=== PATIENT | male | born 1995 | race Two or more races ===

== ENCOUNTER 2020-11-15 22:26 | Emergency (ER) | payer SELFPAY ==
--- NOTE | ~2020-11-15 | XR_ITS ---
EXAMINATION: XR ANKLE, LEFT CLINICAL INFORMATION: Swelling. Injury. COMPARISON: None TECHNIQUE: AP, lateral, and mortise views of the left ankle. FINDINGS: No fracture or dislocation. The ankle mortise is congruent. No ankle joint effusion seen. Lateral soft tissue swelling. XR/XR ankle LT 2V IMPRESSION: Lateral soft tissue swelling. No acute osseous abnormality.
[2020-11-16 04:00] VITALS: BP 142/74; PULSE 77; RESP 16; TEMP 36.2; O2SAT 100; BMI 20.9
[2020-11-16 05:19] VITALS: BP 141/74; PULSE 93; TEMP 36; O2SAT 100
--- NOTE | 2020-11-16 05:59 | ED_ITS ---
HPI - Extremity Injury (Lower) General Chief Complaint: Extremity Injury, Lower Stated Complaint: ankle inj Time Seen by Provider: 11/16/20 05:58 Source: patient Mode of arrival: ambulatory History of Present Illness HPI Narrative: 25-year-old male without significant past medical history is playing basketball and twisted his left ankle now presents with swollen/painful ankle. Related Data Allergies Allergy/AdvReac Type Severity Reaction Status Date / Time No Known Allergies Allergy Verified 11/16/20 03:59 Review of Systems Review of Systems: Pertinent positives and negatives as stated in HPI 10 point review of systems otherwise negative. [facility] Social History Social History Advance Directives: No Advance Directives Information Provided: No Physical Exam Vital Signs: Vital Signs: Last Vital Signs Temp 96.8 F 11/16/20 05:19 Pulse 93 11/16/20 05:19 Resp 16 11/16/20 04:00 BP 141/74 H 11/16/20 05:19 Pulse Ox 100 11/16/20 05:19 Body Mass Index 20.9 VITAL SIGNS: Reviewed. GENERAL: Well developed, well nourished, in no acute distress. HEAD: Normocephalic/atraumatic EYES: PERRLA, EOMI LUNGS: Normal breath sounds. SpO2<100> CARDIOVASCULAR: Regular rate and rhythm without noted murmurs ABDOMEN: Soft, non-tender, non-distended with bowel sounds. LEFT ANKLE: Swelling noted primarily at the lateral malleolus with good palpable DP/PT, capillary refill less than 3 seconds and sensory is intact. No midfoot tenderness. SKIN: Inspection of the skin reveals no rashes NEUROLOGIC: Alert and oriented x 4. Course Course Course Narrative: 25-year-old male with history and clinical presentation consistent with sprain versus for fracture and doubt dislocation. After review of all investigations there is no imaging evidence of fracture or dislocation and patient received an Giuliano wrap as well as a work note. Discharge Plan Discharge Clinical Impression: Left ankle sprain Patient Disposition: Home, Self-Care Instructions: Ankle Sprain (ED), R.I.C.E. Treatment (ED) Additional Instructions: 1. Tylenol 1000 mg, orally, every 6 hours as needed for pain control. Do not exceed 4000 mg within 24 hours. 2. Ibuprofen 400 mg, orally with milk or food, every 6 hours as needed for pain control. 3. Recommend applying ice to unexposed skin for 10-15 minutes, 3 to 4 times a day. 4. Recommend establishing care with a primary care provider and being re- evaluated. 5. You may bear weight as tolerated on the left foot and this will gradually improve with time. Do not run, jump. Return to the ER for acute worsening of your symptoms. Referrals: Physician,None [Primary Care Provider] - 2 days Stand Alone Forms: Work/School Release Interventions: LWBS Worksheet Last Done: 11/16/20 03:38
[2020-11-16 06:06] VITALS: BP 121/70; PULSE 83; RESP 16; TEMP 37.1; O2SAT 100
== END 2020-11-16 06:32 | disposition home or self-care (01) ==
PROVIDERS: Emergency Provider Student in an Organized Health Care Education/Training Program
DX: S93.402A Sprain of unspecified ligament of left ankle, initial encounter (principal); M25.572 Pain in left ankle and joints of left foot; Y93.67 Activity, basketball; Y93.9 Activity, unspecified; Y92.310 Basketball court as the place of occurrence of the external cause; Y99.9 Unspecified external cause status
CPT/HCPCS: 73600; 99283; 99284

== ENCOUNTER 2020-12-09 15:40 | Outpatient (REF) | payer OTHER, SELFPAY | END 2020-12-09 15:41 | disposition home or self-care (01) | LOC: HO.LAB 15:40 | PROVIDERS: Visit Provider Internal Medicine | DX: Z20.822 Contact with and (suspected) exposure to COVID-19 (principal) | CPT/HCPCS: C9803; U0003; U0005 ==

== ENCOUNTER 2023-08-13 12:03 | Emergency (ER) | payer SELFPAY ==
[2023-08-13 12:26] VITALS: BP 104/71; PULSE 106; RESP 16; TEMP 37.4; O2SAT 97; BMI 21.1
--- NOTE | 2023-08-13 12:31 | ED.GENADULT ---
HPI - General Adult General Chief complaint: Upper Respiratory Symptoms Stated complaint: Fever Time Seen by Provider: 08/13/23 15:23 Source: patient Mode of arrival: ambulatory Limitations: no limitations History of Present Illness HPI narrative: 28 yold male with no pmh presents to the ED for sore throat, fever, bodyaches, and chills for a few days. Patient states no coughing, chest pain, or shortness of breath. Related Data Previous Rx's ?Medication ?Instructions ?Recorded amoxicillin 875 mg-potassium 1 tab PO Q12H 7 days #14 tabs 08/13/23 clavulanate 125 mg tablet naproxen 500 mg tablet 500 mg PO BID PRN pain 7 days #14 08/13/23 tabs Allergies Allergy/AdvReac Type Severity Reaction Status Date / Time No Known Allergies Allergy Verified 08/13/23 12:30 Review of Systems Review of Systems: sore throat, fever, chills Yes all other systems are reviewed and are negative [facility] Social History Social History Alcohol intake: unknown Patient Tobacco Use Status: Tobacco use Unknown Advance Directives: No Advance Directives Information Provided: No Do you have a plan to hurt others: No Plan Physical Exam ED Vital Signs: Vital Signs - 24 hr 08/13/23 12:26 08/13/23 15:45 Temperature 99.3 F 99.3 F Pulse Rate 106 H 106 H Respiratory Rate 16 16 Blood Pressure 104/71 104/71 Pulse Oximetry 97 97 Oxygen Delivery Method Room Air Room Air BMI result Body Mass Index 21.1 Const General: cooperative, healthy appearing, comfortable, no acute distress, well developed, alert and awake Orientation/consciousness: patient oriented x3 HENMT Head: Yes normal to inspection, Yes No palpable skull fracture present, Yes normocephalic, Yes atraumatic and No abrasion Ears: hearing grossly normal bilaterally, external ears normal, TM's normal bilaterally, TM normal on the right, TM normal on the left, EAC's normal, mastoids normal and no periauricular adenopathy Throat: Yes posterior oropharynx normal, Yes uvula midline and Yes abnormal tonsil (bilateral exudates. no signs of peritonsillar abscess) Eyes General: appearance normal, both eyes and all related structures Neck Neck: Yes normal visual inspection, Yes full ROM, Yes no lymphadenopathy, Yes no meningeal signs, Yes trachea midline, Yes supple, No anterior neck swelling and No tender Chest Chest palpation & inspection: normal inspection of the chest and normal palpation of entire chest wall Resp Effort & Inspection: normal respiratory effort and able to speak in complete sentences Auscultation: clear to auscultation bilaterally Cardio Jugular venous distension: no JVD Heart sounds: S1 normal heart sound present and S2 normal heart sound present GI Inspection: Yes normal to inspection and No abdominal wall ecchymosis Palpation (GI): Soft to palpation, not firm, nontender, no guarding and not rigid General: Yes no CVA tenderness Back/Spine/Pelvis Back: no CVA tenderness and No back tenderness Skin General skin exam: no rashes or lesions noted, elasticity normal and turgor normal Neuro General: patient oriented x3, gait normal, tone normal, moves all extremities, Normal light touch and pain sensation, no meningeal signs, no focal motor deficits, CN's II-XI intact bilaterally and normal sensation to monofilament Extrem General: Yes normal to inspection, Yes full ROM and Yes capillary refill normal Psych Appearance: grossly normal, well kempt and not disheveled Course Course Course Narrative: RME: Triage written by FERNANDO Stephenson. Patient presents to ED for sore throat, fever, and cough. Oral exam negative for signs for peritonsillar abscess. Patient is not lethargic. SARs strep ordered Medical Decision Making Medical Decision Making [facility] Narrative: 28-year-old male presents to the ED for sore throat, fever, and chills. Or exam negative for signs of peritonsillar abscess. SARs swab negative. Patient positive for strep. Patient will be discharged with antibiotics. Patient explained worrisome signs informed to return to the ED for has them. Differential Diagnosis Differential Diagnoses: The differential diagnosis associated with the presentation includes (Strep, COVID, RSV, influenza) Admission/Observation Consideration of admission/observation: Escalation of care including admission/observation considered Lab Data MDM Lab Attestation statement: I reviewed the patient's lab results. Labs: Lab Results 08/13/23 Range/Units 14:08 Influenza Type A (PCR) NEGATIVE (Negative) Influenza Type B (PCR) NEGATIVE (Negative) RSV RNA Qual (PCR) NEGATIVE (Negative) SARS-CoV-2 RNA (RT-PCR) NEGATIVE (Negative) S. pyogenes GrpA DANITZA Positive A (Negative) Independent Historian Clinical information obtained from an independent historian. History obtained from or confirmed by: Other (Patient) External Record Review External record reviewed: Other (Prior visit) Prescription Management I considered prescription management with: Pain Medication Discharge Plan Discharge Clinical Impression: Strep pharyngitis Patient Disposition: Home, Self-Care Instructions: Strep Throat (ED) Additional Instructions: Recommend follow-up with primary care provider. Return to the ED immediately for any drooling, change in voice, inability tolerate solid food/liquid, chest pain, shortness of breath, or any other concerning symptoms. Prescriptions: New amoxicillin-pot clavulanate 875-125 mg tablet 1 tab PO Q12H 7 Days Qty: 14 0RF naproxen 500 mg tablet 500 mg PO BID PRN (Reason: pain) 7 Days Qty: 14 0RF Stand Alone Forms: Work/School Release Interventions: ED Discharge Assessment Last Done: 08/13/23 15:45 Discharge Date/Time: 08/13/23 15:45 Print Language: Persian
[2023-08-13 14:27] LABS: IDNOW Serial# 08D9AD1C; Strep A Nucleic Acid Positive (Negative)
[2023-08-13 14:56] LABS: Influenza A PCR NEGATIVE (Negative); Influenza B PCR NEGATIVE (Negative); Resp Syncy Virus RNA Qual PCR NEGATIVE (Negative); SARS COV2 PCR INHOUSE NEGATIVE (Negative)
[2023-08-13 15:45] VITALS: BP 104/71; PULSE 106; RESP 16; TEMP 37.4; O2SAT 97
== END 2023-08-13 15:45 | disposition home or self-care (01) ==
PROVIDERS: Physician Assistant; Emergency Provider Emergency Medicine
DX: J02.0 Streptococcal pharyngitis (principal); R50.9 Fever, unspecified
CPT/HCPCS: 0241U; 87651; 99282; 99283

== ENCOUNTER 2024-03-10 09:09 | Emergency (ER) | payer SELFPAY ==
[2024-03-10 09:28] VITALS: BP 136/83; PULSE 79; RESP 20; TEMP 36.6; O2SAT 100; BMI 20.2
--- NOTE | 2024-03-10 10:46 | ED.GENADULT ---
HPI - General Adult General Chief complaint: Eye Problems Stated complaint: [place] eye? Both eyes Time Seen by Provider: 03/10/24 10:36 Source: patient Mode of arrival: ambulatory Limitations: no limitations History of Present Illness ED Provider: Nena GROSS narrative: Patient is a 29-year-old male presenting to the emergency department with complaint of bilateral eye redness, itching and watery drainage for the past 3 days. Reports eyes are crusted over in the mornings. Denies concern for foreign body. Does not wear contact lenses. Reports cough and nasal congestion as well. Denies fevers. Denies vision changes. complaint: eye irritation Onset (ago): day(s) Location: eyes Associated symptoms: cough Treatments prior to arrival: none Related Data Previous Rx's ?Medication ?Instructions ?Recorded amoxicillin 875 mg-potassium 1 tab PO Q12H 7 days #14 tabs 08/13/23 clavulanate 125 mg tablet naproxen 500 mg tablet 500 mg PO BID PRN pain 7 days #14 08/13/23 tabs ofloxacin 0.3 % eye drops See Rx Instructions ophthalmic 03/10/24 (eye) .COMPLEX #10 mL Allergies Allergy/AdvReac Type Severity Reaction Status Date / Time No Known Allergies Allergy Verified 03/10/24 09:29 Review of Systems Review of Systems: As per HPI Yes all other systems are reviewed and are negative Constitutional: Constitutional: Reports as per HPI [facility] Social History Social History Alcohol intake: unknown Patient Tobacco Use Status: Tobacco use Unknown Advance Directives: No Advance Directives Information Provided: Yes Physical Exam ED Vital Signs: Vital Signs - 24 hr 03/10/24 09:28 Temperature 98 F Pulse Rate 79 Respiratory Rate 20 Blood Pressure 136/83 Pulse Oximetry 100 Oxygen Delivery Method Room Air BMI result Body Mass Index 20.2 Vital signs have been reviewed and appear to be correct. Blood pressure normal. Heart rate normal. Respiratory rate normal. Temperature normal. Oxygen saturation normal. Const General: cooperative, healthy appearing and no acute distress Orientation/consciousness: oriented to person, oriented to place, oriented to time and patient oriented x3 Limitations: no limitations HENMT Head: Yes normocephalic and Yes atraumatic Ears: external ears normal General nose exam: Normal external nose present Face and sinus: Yes face symmetric Mouth: oropharynx normal and moist mucous membranes Throat: Yes uvula midline Eyes General: appearance normal, both eyes and all related structures Conjunctivae: conjunctival abnormal bilateral conjunctival injection diffuse Corneas: corneas normal Pupils: Equal, round and reactive pupils present EOM: EOMs intact bilaterally Neck Neck: Yes normal visual inspection and Yes supple Resp Effort & Inspection: normal respiratory effort and able to speak in complete sentences Auscultation: clear to auscultation bilaterally Cardio Rate: regular rate Rhythm: regular rhythm Heart sounds: S1 normal heart sound present and S2 normal heart sound present GI Palpation (GI): Soft to palpation and nontender Auscultation: normoactive bowel sounds General: Yes no CVA tenderness Back/Spine/Pelvis Back: no CVA tenderness Skin General skin exam: elasticity normal and turgor normal Neuro General: oriented to person, oriented to place, oriented to time, patient oriented x3, moves all extremities, no focal motor deficits and CN's II-XI intact bilaterally Cranial nerves: Yes Equal, round and reactive pupils present Cognition (Neuro): normal cognition Extrem General: Yes full ROM, Yes no pedal edema and Yes no calf tenderness Psych Mental Status: mental status grossly normal Affect: normal affect Thought process: Normal thought process present Medical Decision Making Medical Decision Making [facility] Narrative: Patient is a 29-year-old male presenting to the emergency department with complaint of bilateral eye redness, itching and watery drainage for the past 3 days. On exam patient is awake, A+Ox3, VS WNL, afebrile, normal neurological exam without focal deficits, physical exam findings as above. Given reported symptoms and physical exam findings, initial differential includes viral versus bacterial conjunctivitis, viral illness. Given extent of inflammation, will treat patient with ofloxacin drops. Advised patient about performing good hand hygiene. Return precautions discussed. Patient verbalized understanding of and agreement with plan. Differential Diagnosis Differential Diagnoses: The differential diagnosis associated with the presentation includes As per [facility] External Record Review External record reviewed: Inpatient record, Office record and Outpatient record Prescription Management I considered prescription management with: Antibiotic Discharge Plan Discharge Clinical Impression: Conjunctivitis Qualifiers: Laterality: bilateral Patient Disposition: Home, Self-Care Instructions: Conjunctivitis (ED) Additional Instructions: You were evaluated in the emergency department today for eye redness, itching, and discharge. You are being treated for conjunctivitis with antibiotic eyedrops. Please complete the full course as prescribed. Be sure to wash hands thoroughly before and after touching your eyes. You can apply cool compresses to your eyes several times daily. You should follow up with your primary care provider or account services representative this week. Return to the emergency department if you develop changes in vision, increasing pain, fever 100.4F or greater, or any other concerning symptoms. Prescriptions: New ofloxacin 0.3 % drops See Rx Instructions .ROUTE .COMPLEX Qty: 10 0RF Rx Instructions: put 1-2 drps into affected eye(s) every 2-4 h x 2 days, then 1-2 drps 4 times/day days 3-7 No Action amoxicillin-pot clavulanate 875-125 mg tablet 1 tab PO Q12H 7 Days Qty: 14 0RF naproxen 500 mg tablet 500 mg PO BID PRN (Reason: pain) 7 Days Qty: 14 0RF Print Language: Chinese
[2024-03-10 12:03] VITALS: BP 136/83; PULSE 79; RESP 20; TEMP 36.6; O2SAT 100
[2024-03-10 12:06] LABS: Influenza A PCR NEGATIVE (Negative); Influenza B PCR NEGATIVE (Negative); Resp Syncy Virus RNA Qual PCR NEGATIVE (Negative); SARS COV2 PCR INHOUSE NEGATIVE (Negative)
== END 2024-03-10 12:03 | disposition home or self-care (01) ==
PROVIDERS: Registered Nurse Emergency; Emergency Provider Emergency Medicine
DX: H10.9 Unspecified conjunctivitis (principal); H57.89 Other specified disorders of eye and adnexa; R05.9 Cough, unspecified; R09.81 Nasal congestion; Z79.899 Other long term (current) drug therapy; Z03.818 Encounter for observation for suspected exposure to other biological agents ruled out
CPT/HCPCS: 0241U; 99282; 99283

== ENCOUNTER 2024-03-14 09:45 | Emergency (ER) | payer SELFPAY ==
[2024-03-14 09:50] VITALS: BP 134/86; PULSE 92; RESP 20; TEMP 37; O2SAT 99; BMI 20.2
--- NOTE | 2024-03-14 11:35 | ED.EYEPROB ---
HPI - Eye Problem General Chief complaint: Eye Problems Stated complaint: pink eye Time Seen by Provider: 03/14/24 10:53 Source: patient Mode of arrival: ambulatory Limitations: no limitations History of Present Illness ED Provider: BILLY ACUÑA PA-C HPI Narrative: 29 year old male with no significant pmhx presents to the ED today for evaluation of bilateral eye redness, tearing, crusting, and burning x7 days. He states the symptoms initially began in his left eye. He was evaluated for this at [facility] ED. Diagnose with bacterial conjunctivitis and discharged with ofloxacin eye drops. He states he has been using these with minimal relief. He states his symptoms have now moved into both eyes. He has also been using [id number] Vysine eye drops. Presents today with increasing redness and burning to the eyes. Endorses associated blurred vision secondary to his eyes watering. No other vision changes. He admits to waking up in the morning with his eyes crusted shut. He reports recent cough and nasal congestion which has since resolved. He denies FB sensation. Denies trauma/ injury to the eyes. He does not wear corrective lenses. Denies concern for STIs. Denies penile discharge. Related Data Previous Rx's ?Medication ?Instructions ?Recorded amoxicillin 875 mg-potassium 1 tab PO Q12H 7 days #14 tabs 08/13/23 clavulanate 125 mg tablet naproxen 500 mg tablet 500 mg PO BID PRN pain 7 days #14 08/13/23 tabs ofloxacin 0.3 % eye drops See Rx Instructions ophthalmic 03/10/24 (eye) .COMPLEX #10 mL erythromycin 5 mg/gram (0.5 %) eye 1 appl ophthalmic (eye) QID #3.5 03/14/24 ointment grams Allergies Allergy/AdvReac Type Severity Reaction Status Date / Time No Known Allergies Allergy Verified 03/14/24 09:51 Review of Systems Review of Systems: Constitutional: No fever, chills, fatigue, night sweats, weight changes ENT/Mouth: No ear pain, hearing loss, nasal congestion, sinus pain, rhinorrhea, sore throat Eyes: No swelling, redness, vision changes, discharge, +eye burning, watering Cardio: No chest pain, palpitations, TAVERAS, orthopnea, peripheral edema Pulm: No SOB, cough, sputum, wheezing, dyspnea, hemoptysis GI: No nausea, vomiting, hematemesis, abdominal pain, diarrhea, constipation, hematochezia, melena : No irregular bleeding, dysuria, frequency, urgency, hesitancy, hematuria, flank pain, urinary flow changes, urinary incontinence or retention MSK: No back pain, neck pain, joint pain, myalgias Skin: No lesions, rashes Neuro: No weakness, numbness, paresthesias, LOC, dizziness, headache Psych: No anxiety/panic, depression, SI/HI, AH/VH All other systems reviewed and are negative. Yes all other systems are reviewed and are negative [facility] Past Medical History Attestation statement: The following information was validated with the patient. Source: old records reviewed and nursing notes reviewed Social History Social History Alcohol intake: unknown Patient Tobacco Use Status: Tobacco use Unknown Advance Directives: No Advance Directives Information Provided: No Physical Exam Vital Signs: Vital Signs: Last Vital Signs Temp 98.6 F 03/14/24 09:50 Pulse 92 03/14/24 09:50 Resp 20 03/14/24 09:50 BP 134/86 03/14/24 09:50 Pulse Ox 99 03/14/24 09:50 O2 Del Method Room Air 03/14/24 09:50 BMI result Body Mass Index 20.2 Vital signs stable, afebrile Const: General: cooperative, healthy appearing, comfortable and no acute distress Orientation/consciousness: patient oriented x3 Limitations: no limitations HEENT: Head: Yes normal to inspection, Yes No palpable skull fracture present, Yes normocephalic and Yes atraumatic Eyes: Other: No periorbital swelling. No enophthalmous or exopthalmous. EOMs intact without pain or entrapment. PERRLA. Positive photophobia. crusting noted to inner canthi. no active purulent drainage. active tearing. No obvious foreign body or abrasion. Noted conjunctival injection and chemosis to b/l eyes. No hazy cornea. Visual acuity OD 20/20, OS 20/20. IOP OD 10, IOP OS 13. On tetracaine exam, no reuptake to suggest abrasion or fb. no ulceration. no dendritic lesions. Neck: Neck: Yes normal visual inspection, Yes full ROM and Yes no lymphadenopathy Resp: Effort & Inspection: normal respiratory effort and able to speak in complete sentences Auscultation: clear to auscultation bilaterally Cardio: Rate: regular rate Rhythm: regular rhythm Skin: General skin exam: no rashes or lesions noted Neuro: General: patient oriented x3 and gait normal Course Course Course Narrative: Physical exam consistent with bacterial conjunctivitis of bilateral eyes. I do not have concern gonorrhea/chlamydia infection. Advised patient to discontinue his ofloxacin and [id number] Vysine drops. Erythromycin ointment sent to pharmacy for treatment. Informed patient that they will need to follow-up with cement finisher apprentice. Referral provided. Patient has remained stable throughout ED visit today. Discussed worrisome signs and symptoms and when to return to the ED. All questions answered at this time. Patient is agreeable with disposition and stable for discharge. Medications Administered Discontinued Medications Generic Name Dose Route Start Last Admin Trade Name Freq PRN Reason Stop Dose Admin Fluorescein Sodium 2 strip 03/14/24 11:40 03/14/24 11:44 Fluorescein Sodium Strip EYE-BOTH 03/14/24 11:41 2 strip ONCE ONE Administration Tetracaine HCl 3 drop 03/14/24 11:40 03/14/24 11:44 Tetracaine Hcl/Pf 0.5% Oph Wilma 4 Ml Drops EYE-BOTH 03/14/24 11:41 3 drop ONCE ONE Administration Medical Decision Making Medical Decision Making MDM Narrative: 29 year old male with no significant pmhx presents to the ED today for evaluation of bilateral eye redness, tearing, crusting, and burning x7 days. Vital signs stable. Afebrile. He is nontoxic-appearing. He is lying on the exam bed with the light off in his eye shut, wearing sunglasses. On occular examination, No periorbital swelling. No enophthalmous or exopthalmous. EOMs intact without pain or entrapment. PERRLA. Positive photophobia. crusting noted to inner canthi. no active purulent drainage. active tearing. No obvious foreign body or abrasion. Noted conjunctival injection and chemosis to b/l eyes. No hazy cornea. Visual acuity OD 20/20, OS 20/20. IOP OD 10, IOP OS 13. On tetracaine exam, no reuptake to suggest abrasion or fb. no ulceration. no dendritic lesions. Differential diagnosis includes corneal abrasion, corneal foreign body, viral vs bacterial conjunctivitis, allergic conjunctivitis. I do not have suspicion for gonorrhea/chlamydia conjunctivitis. Unlikely preseptal or orbital cellulitis, acute angle closure glaucoma, iritis, keratitis, scleritis, uveitis, ophthalmicus. Plan for tetracaine/fluorescein examination, intra-ocular pressures, visual acuity, re-evaluation. Differential Diagnosis Differential Diagnoses: The differential diagnosis associated with the presentation includes as above. Admission/Observation not indicated. External Record Review External record reviewed: Inpatient record Prescription Management I considered prescription management with: Antibiotic (erythromycin ointment) Social Determinants Patient?s care significantly limited by Social Determinants of Health including: Other Social Determinant of Health Critical Care Time Critical Care Time Critical Care Time: No Discharge Plan Discharge Clinical Impression: Bacterial conjunctivitis of both eyes Patient Disposition: Home, Self-Care Instructions: Erythromycin (Into the eye), Conjunctivitis (ED) Additional Instructions: You were evaluated in the ED today for eye symptoms. Your workup is consistent with bacterial conjunctivitis (infection) of both eyes. Stop using your ofloxacin eye drops. I also advised you to stop using the [id number] eye drops that you purchased as this can cause increased eye redness. I am sending erythromycin ointment to your pharmacy. This is an antibiotic ointment that you will apply to both eyes as prescribed. Do not put anything else in your eyes. Practice good hand hygiene. Follow-up with an cement finisher apprentice. You have been provided with a referral. Call them to establish care. They will not call you. Return with new or worsening symptoms. In the case of an emergency call 911. Prescriptions: New erythromycin 5 mg/gram (0.5 %) ointment 1 appl ophthalmic (eye) QID Qty: 3.5 0RF Rx Instructions: Instill ~0.5-inch ribbon into affected eye(s) 4 times daily for 3 to 5 days No Action amoxicillin-pot clavulanate 875-125 mg tablet 1 tab PO Q12H 7 Days Qty: 14 0RF naproxen 500 mg tablet 500 mg PO BID PRN (Reason: pain) 7 Days Qty: 14 0RF ofloxacin 0.3 % drops See Rx Instructions .ROUTE .COMPLEX Qty: 10 0RF Rx Instructions: put 1-2 drps into affected eye(s) every 2-4 h x 2 days, then 1-2 drps 4 times/day days 3-7 Referrals: Vickey Acevedo [Physician] - 3 days Stand Alone Forms: Work/School Release Print Language: Urdu
[2024-03-14] MEDS: Fluorescein Sodium STRIP 2 STRIP EYE-BOTH (11:44)
[2024-03-14] MEDS: Tetracaine HCl/PF 0.5% Oph Sol 4 ML DROPS 3 DROP EYE-BOTH (11:44)
--- NOTE | 2024-03-14 12:04 | PC.NURSE ---
provider to administer meds and do eye evaluation
--- NOTE | 2024-03-14 12:32 | PC.NURSE ---
visual acuity performed by tech
[2024-03-14 12:40] VITALS: BP 120/84; PULSE 82; RESP 16; TEMP 36.3; O2SAT 98
== END 2024-03-14 12:41 | disposition home or self-care (01) ==
PROVIDERS: Emergency Provider Emergency Medicine
DX: H10.9 Unspecified conjunctivitis (principal); H57.13 Ocular pain, bilateral
CPT/HCPCS: 99282; 99283